=== PATIENT | female | born 1935 | race Asian ===

== ENCOUNTER 2020-09-20 10:15 | Emergency (ER) | payer MEDICARE, OTHER ==
[~2020-09-20] VITALS: Ht 160 cm; Wt 136.4 kg
[~2020-09-20 10:15] MED LIST: ASPI-1444 PO; ESOM20CA31 PO; HYDR-4723 PO; HYDR10TA31 PO; ISOS10TA8 PO; LORA10TA7 PO; OLME40TA8 PO; RALO60 PO; SIMV-260 PO; TERI2.4P SQ; VITAD5000 PO
[2020-09-20] MEDS ORDERED: HYDROCODONE/ACETAMINOPHEN 5-325 MG TABLET PO ONE (11:15)
[2020-09-20 14:26] VITALS: BP 160/88
== END 2020-09-20 15:25 | disposition home or self-care (01) ==
LOC: EMS 10:15
DX: S00.03XA Contusion of scalp, initial encounter (principal); E78.00 Pure hypercholesterolemia, unspecified; M25.512 Pain in left shoulder; S22.088A Other fracture of T11-T12 vertebra, initial encounter for closed fracture; I10 Essential (primary) hypertension; W19.XXXA Unspecified fall, initial encounter; Y93.89 Activity, other specified; Y92.89 Other specified places as the place of occurrence of the external cause; Y99.8 Other external cause status
CPT/HCPCS: 70450; 72125; 72131; 82962; 99285

== ENCOUNTER 2024-06-04 15:11 | Inpatient (IN) | payer MEDICARE, OTHER ==
[~2024-06-04] VITALS: Ht 152.4 cm; Wt 52.0 kg
[2024-06-04] VITALS (7 sets, daily range): BP systolic 154–166; BP diastolic 61–92; PULSE 92–102; RESP 15–16; TEMP 97.7–98.5
[~2024-06-04 15:11] MED LIST changes: +HYDR-4062 PO; -HYDR-4723 PO; -ISOS10TA8 PO; +ISOS10TA96 PO; +OLME40TA70 PO; -OLME40TA8 PO
[2024-06-04 16:49] LABS: ANION GAP 11 mmol/L (8-16); CALCIUM, TOTAL 9.2 mg/dL (8.8-10.5); CARBON DIOXIDE 29 mmol/L (22-29); CHLORIDE 107 mmol/L (98-107); CREATININE 0.73 mg/dL (0.60-1.30); GLOMERULAR FILTR. RATE CALC > 60 mL/min (>60); GLUCOSE,RANDOM 99 mg/dL (70-110); SODIUM SERUM 147 mmol/L (136-145); UREA NITROGEN, BLOOD 27 mg/dL (7-18)
[2024-06-04 16:50] LABS: BASOPHILS % (AUTO) 1.9 % (0.0-2.0); EOSINOPHILS % (AUTO) 1.8 % (1.0-6.0); LYMPHOCYTES # (AUTO) 1.4 K/uL (1.0-4.8); LYMPHOCYTES % (AUTO) 29.1 % (22.0-44.0); MEAN CORPUSCULAR HEMOGLOBIN 24.5 pg (26.0-34.0); MEAN CORPUSCULAR HGB CONC 30.5 G/dL (31.0-37.0); MEAN CORPUSCULAR VOLUME 81 fL (80-100); MONOCYTES # (AUTO) 0.6 K/uL (0.1-1.0); MONOCYTES % (AUTO) 13.6 % (2.0-9.0); NEUTROPHILS # (AUTO) 2.5 K/uL (1.8-7.7); NEUTROPHILS % (AUTO) 53.6 % (40.0-70.0); PLATELET COUNT (AUTO) 243 K/uL (150-450); RED BLOOD CELL COUNT(AUTO) 2.57 MIL/uL (4.00-5.20); WHITE BLOOD COUNT (AUTO) 4.8 K/uL (4.5-11.0)
[2024-06-04 16:54] LABS: ALANINE AMINOTRANSFERASE 19 U/L (12-78); ALBUMIN 3.1 g/dL (3.4-5.0); ALKALINE PHOSPHATASE 64 U/L (46-116); ASPARTATE AMINOTRANSFERASE 29 U/L (15-37); BILIRUBIN,TOTAL 0.4 mg/dL (0.1-1.0); LIPASE 35 U/L (16-77); TOTAL PROTEIN, SERUM 6.7 g/dL (6.4-8.2)
[2024-06-04 16:55] LABS: HEMATOCRIT 20.7 % (36-46); HEMOGLOBIN 6.3 g/dL (12.0-16.0); PROTHROMBIN TIME 11.3 SEC (9.4-11.6)
[2024-06-04] MEDS: POTASSIUM CHLORIDE 20 MEQ ER TABLET PO ONE (18:03)
[2024-06-04] MEDS: PANTOPRAZOLE SODIUM 40 MG/VIAL IVP ONE (18:03)
[2024-06-04] MEDS ORDERED: DEXTROSE 50%-WATER 25 GM/50 ML SYRINGE IVP PRN (20:00)
[2024-06-04] MEDS ORDERED: POTASSIUM CHL 10 MEQ/WATER 50 ML IV PRN (20:00)
[2024-06-04] MEDS ORDERED: ONDANSETRON HCL 4 MG/2 ML VIAL IVP PRN (20:00)
[2024-06-04] MEDS: PANTOPRAZOLE SODIUM 80 MG in SODIUM CHLORIDE 0.9% 100 ML IV SCH (20:23)
[2024-06-04 20:30] LABS: TROPONIN I-HIGH SENSITIVITY 58 ng/L (<51)
[2024-06-04] MEDS: DOCUSATE SODIUM 100 MG CAPSULE PO SCH (21:00)
[2024-06-04] MEDS: DEXTROSE 5%-LACTATED RINGERS 1,000 ML IV SCH (21:03)
[2024-06-04 21:54] LABS: BASOPHILS % (AUTO) 1.4 % (0.0-2.0); HEMATOCRIT 23.8 % (36-46); HEMOGLOBIN 7.3 g/dL (12.0-16.0); LYMPHOCYTES # (AUTO) 1.5 K/uL (1.0-4.8); LYMPHOCYTES % (AUTO) 26.3 % (22.0-44.0); MEAN CORPUSCULAR HEMOGLOBIN 25.3 pg (26.0-34.0); MEAN CORPUSCULAR HGB CONC 30.8 G/dL (31.0-37.0); MEAN CORPUSCULAR VOLUME 82 fL (80-100); MONOCYTES # (AUTO) 0.8 K/uL (0.1-1.0); MONOCYTES % (AUTO) 13.5 % (2.0-9.0); NEUTROPHILS # (AUTO) 3.2 K/uL (1.8-7.7); NEUTROPHILS % (AUTO) 56.8 % (40.0-70.0); PLATELET COUNT (AUTO) 195 K/uL (150-450); RED BLOOD CELL COUNT(AUTO) 2.89 MIL/uL (4.00-5.20); RED CELL DISTRIBUTION WIDTH 17.4 % (11.5-14.5); WHITE BLOOD COUNT (AUTO) 5.6 K/uL (4.5-11.0)
[2024-06-04 23:40] LABS: TROPONIN I-HIGH SENSITIVITY 74 ng/L (<51)
[2024-06-04] MEDS ORDERED: DEXTROSE 5%-0.45% SODIUM CHL 1,000 ML IV PRN (23:55)
[2024-06-05] MEDS: PANTOPRAZOLE SODIUM 80 MG in SODIUM CHLORIDE 0.9% 100 ML IV SCH (05:06)
[2024-06-05 07:02] LABS: ANION GAP 7 mmol/L (8-16); CALCIUM, TOTAL 8.2 mg/dL (8.8-10.5); CARBON DIOXIDE 30 mmol/L (22-29); CHLORIDE 112 mmol/L (98-107); GLOMERULAR FILTR. RATE CALC > 60 mL/min (>60); GLUCOSE,RANDOM 100 mg/dL (70-110); POTASSIUM 3.5 mmol/L (3.5-5.1); SODIUM SERUM 149 mmol/L (136-145); UREA NITROGEN, BLOOD 19 mg/dL (7-18)
[2024-06-05 07:18] LABS: BASOPHILS % (AUTO) 1.1 % (0.0-2.0); EOSINOPHILS % (AUTO) 2.7 % (1.0-6.0); HEMATOCRIT 21.2 % (36-46); LYMPHOCYTES # (AUTO) 1.2 K/uL (1.0-4.8); LYMPHOCYTES % (AUTO) 18.6 % (22.0-44.0); MEAN CORPUSCULAR HEMOGLOBIN 26.2 pg (26.0-34.0); MEAN CORPUSCULAR HGB CONC 31.9 G/dL (31.0-37.0); MEAN CORPUSCULAR VOLUME 82 fL (80-100); MONOCYTES # (AUTO) 0.7 K/uL (0.1-1.0); MONOCYTES % (AUTO) 11.2 % (2.0-9.0); NEUTROPHILS # (AUTO) 4.2 K/uL (1.8-7.7); NEUTROPHILS % (AUTO) 66.4 % (40.0-70.0); PLATELET COUNT (AUTO) 183 K/uL (150-450); RED BLOOD CELL COUNT(AUTO) 2.58 MIL/uL (4.00-5.20); RED CELL DISTRIBUTION WIDTH 17.7 % (11.5-14.5); WHITE BLOOD COUNT (AUTO) 6.3 K/uL (4.5-11.0)
[2024-06-05 07:25] LABS: HEMOGLOBIN 6.8 g/dL (12.0-16.0)
[2024-06-05] MEDS ORDERED: LIDOCAINE/PF 2% 5 ML VIAL IM ONE (12:00)
[2024-06-05] MEDS ORDERED: PROPOFOL 1% 20 ML VIAL IVP ONE (12:00)
[2024-06-05] MEDS ORDERED: ATROPINE SULFATE 0.1 MG/ML 10 ML SYRINGE IVP ONE (13:15)
[2024-06-05] MEDS ORDERED: SODIUM TETRADECYL SULFATE 3% 60 MG/2 ML VIAL IVP ONE (13:15)
[2024-06-05] MEDS ORDERED: DiphenhydrAMINE HCL 50 MG/ML VIAL ONE (13:15)
[2024-06-05] MEDS ORDERED: FLUMAZENIL 0.1 MG/ML 5 ML VIAL IVP ONE (13:15)
[2024-06-05] MEDS ORDERED: NALOXONE HCL 0.4 MG/ML VIAL ONE (13:15)
[2024-06-05] MEDS ORDERED: EPINEPHrine 1:10,000 [1 MG/10 ML] SYRINGE ONE (13:15)
[2024-06-05] MEDS: SODIUM CHLORIDE 0.9% 1,000 ML IV ONE (13:27)
[2024-06-05] MEDS ORDERED: SODIUM CHLORIDE 0.9% 1,000 ML ONE (13:36)
[2024-06-05 13:55] VITALS: BP 122/55; PULSE 87; RESP 12; TEMP 97.4
[2024-06-05 14:10] VITALS: BP 130/61; PULSE 90; RESP 14; TEMP 97.4
[2024-06-05 14:25] VITALS: BP 150/89; PULSE 95; RESP 14; TEMP 97.4
[2024-06-05 14:40] VITALS: BP 156/80; PULSE 98; RESP 14; TEMP 97.4
[2024-06-05 17:22] LABS: BASOPHILS % (AUTO) 0.8 % (0.0-2.0); EOSINOPHILS % (AUTO) 1.4 % (1.0-6.0); HEMATOCRIT 29.6 % (36-46); HEMOGLOBIN 9.5 g/dL (12.0-16.0); LYMPHOCYTES % (AUTO) 11.3 % (22.0-44.0); MEAN CORPUSCULAR HEMOGLOBIN 27.1 pg (26.0-34.0); MEAN CORPUSCULAR HGB CONC 32.2 G/dL (31.0-37.0); MEAN CORPUSCULAR VOLUME 84 fL (80-100); MONOCYTES % (AUTO) 11.2 % (2.0-9.0); NEUTROPHILS % (AUTO) 75.3 % (40.0-70.0); PLATELET COUNT (AUTO) 178 K/uL (150-450); RED BLOOD CELL COUNT(AUTO) 3.51 MIL/uL (4.00-5.20); RED CELL DISTRIBUTION WIDTH 16.7 % (11.5-14.5); WHITE BLOOD COUNT (AUTO) 9.3 K/uL (4.5-11.0)
[2024-06-05 21:52] VITALS: BP 156/75; PULSE 75; RESP 19; TEMP 100.4; O2SAT 93
[2024-06-05] MEDS: ACETAMINOPHEN 325 MG TABLET PO PRN (22:22)
[2024-06-05 23:43] VITALS: BP 107/51; PULSE 101; RESP 18; TEMP 98.1; O2SAT 93
[2024-06-06] LABS: GLUCOMETER DEV NAME(LOC) 5N.2C; GLUCOSE,POINT OF CARE 92 MG/DL (70-110)
[2024-06-06 03:18] VITALS: BP 154/72; PULSE 99; RESP 18; TEMP 98.2; O2SAT 96
[2024-06-06 07:28] LABS: BASOPHILS % (AUTO) 0.4 % (0.0-2.0); EOSINOPHILS % (AUTO) 0.8 % (1.0-6.0); HEMATOCRIT 24.8 % (36-46); HEMOGLOBIN 8.4 g/dL (12.0-16.0); LYMPHOCYTES # (AUTO) 0.9 K/uL (1.0-4.8); LYMPHOCYTES % (AUTO) 8.7 % (22.0-44.0); MEAN CORPUSCULAR HGB CONC 33.9 G/dL (31.0-37.0); MEAN CORPUSCULAR VOLUME 83 fL (80-100); MONOCYTES # (AUTO) 1.7 K/uL (0.1-1.0); MONOCYTES % (AUTO) 16.8 % (2.0-9.0); NEUTROPHILS # (AUTO) 7.3 K/uL (1.8-7.7); NEUTROPHILS % (AUTO) 73.3 % (40.0-70.0); PLATELET COUNT (AUTO) 157 K/uL (150-450); RED CELL DISTRIBUTION WIDTH 16.7 % (11.5-14.5)
[2024-06-06 07:40] LABS: GLUCOMETER DEV NAME(LOC) 5N.2C; GLUCOSE,POINT OF CARE 118 MG/DL (70-110)
[2024-06-06 07:42] LABS: ANION GAP 7 mmol/L (8-16); CARBON DIOXIDE 30 mmol/L (22-29); CHLORIDE 107 mmol/L (98-107); CREATININE 0.78 mg/dL (0.60-1.30); GLOMERULAR FILTR. RATE CALC > 60 mL/min (>60); GLUCOSE,RANDOM 125 mg/dL (70-110); SODIUM SERUM 144 mmol/L (136-145); UREA NITROGEN, BLOOD 11 mg/dL (7-18)
[2024-06-06 07:49] VITALS: BP 128/57; PULSE 69; RESP 18; TEMP 98; O2SAT 96
[2024-06-06] MEDS: ASCORBIC ACID 500 MG TABLET PO SCH (11:20)
[2024-06-06] MEDS: POTASSIUM CHLORIDE 20 MEQ ER TABLET PO ONE (11:20)
[2024-06-06] MEDS: ACETAMINOPHEN 650 MG/20.3 ML SOLUTION UDCUP PO SCH (11:24)
[2024-06-06] MEDS: FERROUS GLUCONATE 324 MG TABLET PO SCH (11:24)
[2024-06-06] MEDS: DICLOFENAC SODIUM 1% 100 GM GEL [2GM] TP ONE (11:26)
[2024-06-06] MEDS: LIDOCAINE 5% TRANSDERMAL PATCH TD SCH (11:26)
[2024-06-06 11:45] LABS: GLUCOMETER DEV NAME(LOC) 5N.2C; GLUCOSE,POINT OF CARE 125 MG/DL (70-110)
[2024-06-06 13:59] VITALS: BP 121/56; PULSE 80; RESP 19; TEMP 98.1; O2SAT 98
[2024-06-06] MEDS ORDERED: OS500 PO (14:41)
[2024-06-06] MEDS ORDERED: HYDR25TA PO (14:41)
[2024-06-06] MEDS ORDERED: ATOR40TA71 PO (14:41)
[2024-06-06] MEDS ORDERED: METO50 PO (14:41)
[2024-06-06] MEDS ORDERED: ALEN70TA65 PO (14:41)
[2024-06-06] MEDS ORDERED: LEVO5TAB13 PO (14:41)
[2024-06-06] MEDS ORDERED: OMEP40CA21 PO (14:41)
[2024-06-06] MEDS ORDERED: ISOS10TA16 PO (14:41)
[2024-06-06] MEDS ORDERED: FURO20TA4 PO (14:41)
[2024-06-06] MEDS ORDERED: GABA-1181 PO (14:41)
[2024-06-06] MEDS ORDERED: POTA-203 PO (14:41)
[2024-06-06] MEDS ORDERED: OLME40TA18 PO (14:41)
[2024-06-06] MEDS: CefTRIAXone 1 GM/DEXTROSE 50 ML IV SCH (15:26)
[2024-06-06 16:14] VITALS: BP 125/56; PULSE 83; RESP 18; TEMP 98; O2SAT 96
[2024-06-06] MEDS: AZITHROMYCIN 500 MG/NS 250 ML IV SCH (16:24)
[2024-06-06 19:54] VITALS: BP 104/50; PULSE 85; RESP 19; TEMP 98.1; O2SAT 98
[2024-06-06] MEDS: POTASSIUM CHLORIDE 20 MEQ ER TABLET PO PRN (20:10)
[2024-06-06] MEDS: -LIDODERM PATCH NOTE- MISC SCH (20:11)
[2024-06-06 21:00] LABS: GLUCOMETER DEV NAME(LOC) 5N.2C; GLUCOSE,POINT OF CARE 103 MG/DL (70-110)
[2024-06-07 04:44] VITALS: BP 106/50; PULSE 82; RESP 18; TEMP 98.5; O2SAT 95
[2024-06-07 07:28] LABS: CALCIUM, TOTAL 7.8 mg/dL (8.8-10.5); CREATININE 0.89 mg/dL (0.60-1.30); MAGNESIUM 1.6 mg/dL (1.80-2.40); POTASSIUM 3.9 mmol/L (3.5-5.1)
[2024-06-07 07:40] LABS: BASOPHILS % (AUTO) 0.5 % (0.0-2.0); EOSINOPHILS % (AUTO) 2.5 % (1.0-6.0); HEMATOCRIT 25.1 % (36-46); HEMOGLOBIN 8.1 g/dL (12.0-16.0); LYMPHOCYTES # (AUTO) 0.7 K/uL (1.0-4.8); LYMPHOCYTES % (AUTO) 9.2 % (22.0-44.0); MEAN CORPUSCULAR HEMOGLOBIN 27.2 pg (26.0-34.0); MEAN CORPUSCULAR HGB CONC 32.2 G/dL (31.0-37.0); MEAN CORPUSCULAR VOLUME 84 fL (80-100); MONOCYTES # (AUTO) 1.1 K/uL (0.1-1.0); MONOCYTES % (AUTO) 13.9 % (2.0-9.0); NEUTROPHILS # (AUTO) 5.7 K/uL (1.8-7.7); NEUTROPHILS % (AUTO) 73.9 % (40.0-70.0); PLATELET COUNT (AUTO) 147 K/uL (150-450); RED BLOOD CELL COUNT(AUTO) 2.98 MIL/uL (4.00-5.20); WHITE BLOOD COUNT (AUTO) 7.7 K/uL (4.5-11.0)
[2024-06-07 08:00] LABS: GLUCOMETER DEV NAME(LOC) 6N.2B; GLUCOSE,POINT OF CARE 82 MG/DL (70-110)
[2024-06-07 08:08] VITALS: BP 130/55; PULSE 96; RESP 19; TEMP 98.4; O2SAT 96
[2024-06-07] MEDS ORDERED: DEXTROSE 5%-WATER 1,000 ML IV ONE ×2 (09:30)
[2024-06-07] MEDS: DEXTROSE 5%-WATER 500 ML IV SCH (09:58)
[2024-06-07] MEDS: MAGNESIUM SULFATE 2 GM/WATER 50 ML IV ONE (10:41)
[2024-06-07] MEDS ORDERED: TraMADol HCL 50 MG TABLET PO PRN ×2 (10:45→22:45)
[2024-06-07 12:20] LABS: GLUCOMETER DEV NAME(LOC) 6S.1D; GLUCOSE,POINT OF CARE 155 MG/DL (70-110)
[2024-06-07 12:21] LABS: BASOPHILS % (AUTO) 0.9 % (0.0-2.0); EOSINOPHILS % (AUTO) 2.9 % (1.0-6.0); HEMATOCRIT 25.5 % (36-46); HEMOGLOBIN 8.1 g/dL (12.0-16.0); LYMPHOCYTES # (AUTO) 0.7 K/uL (1.0-4.8); LYMPHOCYTES % (AUTO) 9.4 % (22.0-44.0); MEAN CORPUSCULAR HEMOGLOBIN 26.9 pg (26.0-34.0); MEAN CORPUSCULAR HGB CONC 31.6 G/dL (31.0-37.0); MEAN CORPUSCULAR VOLUME 85 fL (80-100); MONOCYTES # (AUTO) 0.9 K/uL (0.1-1.0); MONOCYTES % (AUTO) 12.5 % (2.0-9.0); NEUTROPHILS # (AUTO) 5.2 K/uL (1.8-7.7); NEUTROPHILS % (AUTO) 74.3 % (40.0-70.0); PLATELET COUNT (AUTO) 149 K/uL (150-450)
[2024-06-07] MEDS: DICLOFENAC SODIUM 1% 100 GM GEL [2GM] TP SCH (16:19)
[2024-06-07 16:23] VITALS: BP 120/50; PULSE 85; RESP 19; TEMP 98.4; O2SAT 98
[2024-06-07] MEDS: SODIUM CHLORIDE 0.9% 500 ML IV ONE (16:52)
[2024-06-07] MEDS ORDERED: ASCO500 PO (17:21)
[2024-06-07] MEDS ORDERED: LEVO-72 PO (17:21)
[2024-06-07] MEDS ORDERED: DICL100G60 TP (17:21)
[2024-06-07] MEDS ORDERED: FERR324T23 PO (17:21)
[2024-06-07] MEDS ORDERED: LIDO700A30 TD (17:21)
[2024-06-07] MEDS ORDERED: PANT-31 PO (17:21)
[2024-06-07] MEDS ORDERED: ACET650S39 PO (17:21)
[2024-06-08] MEDS ORDERED: LEVOFLOXACIN 500 MG TABLET PO SCH (07:00)
== END 2024-06-07 18:30 | disposition home health service (06) | DRG 377 ==
LOC: EMS 15:11 → EDH 20:09 → 5N 06-05 21:35 → 6S 06-06 20:42
PROVIDERS: ADMIT Internal Medicine; ATTEND Internal Medicine
PROC: 30233N1 Transfusion of Nonautologous Red Blood Cells into Peripheral Vein, Percutaneous Approach (ICD-10-PCS; principal; 2024-06-04)
PROC: 0DJ08ZZ Inspection of Upper Intestinal Tract, Via Natural or Artificial Opening Endoscopic (ICD-10-PCS; 2024-06-05)
DX: K25.4 Chronic or unspecified gastric ulcer with hemorrhage (principal); E43 Unspecified severe protein-calorie malnutrition; J15.69 Pneumonia due to other Gram-negative bacteria; D62 Acute posthemorrhagic anemia; E87.1 Hypo-osmolality and hyponatremia; D50.9 Iron deficiency anemia, unspecified; M17.11 Unilateral primary osteoarthritis, right knee; E87.6 Hypokalemia; I10 Essential (primary) hypertension; E78.00 Pure hypercholesterolemia, unspecified; G89.29 Other chronic pain; M54.9 Dorsalgia, unspecified; Z68.22 Body mass index [BMI] 22.0-22.9, adult
CPT/HCPCS: 71045; 80048; 80076; 82962; 83690; 83735; 84132; 84484; 85025; 85610; 85730; 86850; 86900; 86901; 86923; 93005; 97167; 99285; G0378; J0171; J0456; J0461; J0696; J1200; J2310; J2470; J2704; J3475; J3490; J7030; J7040; J7050; J7060; P9016; 36415-L1; 36415-TC